=== PATIENT | female | born 1940 | race Caucasian/White ===

== ENCOUNTER → 2023-04-26 15:59 | Outpatient (REF) | payer MEDICARE, OTHER, SELFPAY | LOC: RAD 15:59 | PROVIDERS: ATTENDING PHYSICIAN Nurse Practitioner Family | DX: M79.671 Pain in right foot (principal) | CPT/HCPCS: 73610; 73630 ==

== ENCOUNTER 2023-04-26 17:16 | Emergency (ER) | payer MEDICARE, OTHER, SELFPAY ==
[2023-04-26 17:18] VITALS: BP 159/61
--- NOTE | 2023-04-26 18:09 | ED.MUSCINJ ---
HPI-Injury
General
Chief Complaint: Musculo-Skeletal Complaint
Source: patient
Exam Limitations: none
Time Seen by Provider: 04/26/23 18:00
Travel History
Have you had any contact with someone who has COVID-19?: No
Do you have any symptoms of coronavirus? Fever > 100 degrees, chills, cough, shortness of breath, sore throat, loss of taste or smell, muscle aches, or headache?: No
History of Present Illness-Injury
Initial Injury comments:
82-year-old female presents complaining of right ankle pain and swelling starting today. She was watching her daughter's dog and the daughter pulled her over and she twisted her ankle. No other complaints at this time. Her family doctor sent her
for outpatient x-rays and was sent here for further treatment. No other complaints at this time.
Past History
Past History
ED Past Medical History: Other (As per documentation)
ED Past Surgical History: Other (cranial ([facility] aneursym))
Social History
Tobacco: Non-smoker
Alcohol: None
Drug: None
Personal:
Living: with family
Family History
Family History: Other (Reviewed and non-contributory)
Phy Exam
Physical Exam
Physical Exam:
General: well appearing female NAd
HEENT: NC/AT
MSK: Right ankle swollen, echhymotic and tender anteriorly and laterally. No deformities. Good ROM, good sensation
Neuro: good sensation right foot.
Vascular: 2+ DP pulse right foot.
Injury Course
Orders/Labs/Results
Orders:
Orders
04/26/23 18:08
Ortho Boot Right- Treatment ONCE
Short or tall?: Short
MDM/Problems Addressed
Differential Diagnosis Includes:
right foot pain. sprain vs fracture vs dislocation
Xrays personally reviewed and show chip fractures of lateral mal and anterior talus.
Will place in orthopedic boot and follow up with orthpedics.
*Critical Care Note
Total Time (30-74mins, 75-104mins- exclusive of procedures): Not Applicable
ED Attending Note
-
Portions of this chart may have been created with voice recognition software.� Occasional wrong word or��sound alike� substitutions may have occurred due to the inherent limitations of voice recognition software.
Discharge Plan
Departure
Patient Disposition: Home (Routine Discharge)
Date of Disposition: 04/26/23
Time of Disposition: 18:12
Patient with high blood pressure during this ER visit?: No
Discharge Problem:
Avulsion fracture of ankle
Instructions: Ankle Fracture (DC)
Prescriptions:
No Action
simvastatin 10 MG tablet
10 mg PO QPM
triamterene-hydrochlorothiazid 1 EACH tablet
1 tab PO DAILY
meclizine 25 MG tablet
25 mg PO Q8HPRN PRN (Reason: prn for dizziness/vertigo) Qty: 20 0RF
glucosamine-chondroitin 1 EACH capsule
1 tab PO DAILY
calcium carbonate-vitamin D3 1 EACH tablet
600 mg PO DAILY
aspirin [Aspir-Low] 81 MG tablet,delayed release (DR/EC)
81 mg PO DAILY
Tylenol
650 mg PO PRN PRN (Reason: pain)
Referrals:
Iraj Bianchi MD [Family Provider] -
Octaviano Garcia MD [Active] -
Activity Restrictions/Additional Instructions:
Use boot when ambulating. Elevate for swelling. Use ibuprofen or Tylenol for pain. Return if worse otherwise follow-up orthopedics
Interventions
Interventions:
*General Assessment Last Done: 04/26/23 17:18
*ED COVID-19 Vaccine History Last Done: 04/26/23 17:18
== END 2023-04-26 18:54 | disposition home or self-care (01) ==
LOC: EMR 17:16
PROVIDERS: EMERGENCY PHYSICIAN Emergency Medicine; FAMILY PHYSICIAN Family Medicine
DX: S82.61XA Displaced fracture of lateral malleolus of right fibula, initial encounter for closed fracture (principal); S92.191A Other fracture of right talus, initial encounter for closed fracture; X50.1XXA Overexertion from prolonged static or awkward postures, initial encounter; Y93.89 Activity, other specified
CPT/HCPCS: 99283; 29515; 73610; 73630

== ENCOUNTER → 2023-09-27 15:33 | Outpatient (REF) | payer MEDICARE, OTHER, SELFPAY | LOC: WDC 15:33 | PROVIDERS: ATTENDING PHYSICIAN Nurse Practitioner Adult Health; FAMILY PHYSICIAN Family Medicine | DX: Z12.31 Encounter for screening mammogram for malignant neoplasm of breast (principal) | CPT/HCPCS: 77063; 77067 ==

== ENCOUNTER → 2023-10-04 09:03 | Outpatient (REF) | payer MEDICARE, OTHER, SELFPAY | LOC: RCS 09:03 | PROVIDERS: ATTENDING PHYSICIAN Internal Medicine Cardiovascular Disease; FAMILY PHYSICIAN Family Medicine | DX: I10 Essential (primary) hypertension (principal); R01.1 Cardiac murmur, unspecified | CPT/HCPCS: 93306 ==

== ENCOUNTER → 2023-11-04 12:58 | Outpatient (REF) | payer MEDICARE, OTHER, SELFPAY | LOC: PAVMRI 12:58 | PROVIDERS: ATTENDING PHYSICIAN Orthopaedic Surgery; FAMILY PHYSICIAN Family Medicine | DX: M17.0 Bilateral primary osteoarthritis of knee (principal) | CPT/HCPCS: 73721 ==

== ENCOUNTER 2024-08-05 12:25 | Inpatient (IN) | payer MEDICARE, OTHER, SELFPAY ==
[2024-08-05] VITALS (10 sets, daily range): BP systolic 137–170; BP diastolic 51–80; BMI 25.6; BMI 25.2
[2024-08-05] MEDS: TORADOL 15 MG IV (07:59)
[2024-08-05] MEDS: NSS 1000 IV (07:59)
[2024-08-05] MEDS: ZOFRAN 4 MG IV (08:00)
[2024-08-05 08:11] LABS: % Basophils 0.4 % (0-2); % Eosinophils 0.1 % (0-6); % Immature Granulocytes 0.5 % (0-0.5); % Lymphocytes 8.1 % (20.5-51.1); % Monocytes 5.2 % (1.7-9.3); % Neutrophils 85.7 % (42.2-75.2); Absolute Basophils 0.1 10^3/uL (0-0.2); Absolute Immature Granulocytes 0.1 10^3/uL (0-0.05); Absolute Monocytes 0.6 10^3/uL (0.1-0.6); Absolute Neutrophils 10.4 10^3/uL (1.4-6.5); Hematocrit 39.6 % (37.0-47.0); Hemoglobin 13.5 g/dL (12.0-16.0); Mean Corp Hgb Conc. 34.1 g/dL (33.0-37.0); Mean Corpuscular Hgb 31.1 pg (27.0-31.0); Mean Corpuscular Volume 91.2 fL (81.0-99.0); Mean Platelet Volume 10.2 fL (7.4-10.4); Nucleated Red Blood Cells % 0 %; Platelet Count 540 10^3/uL (130-400); Red Blood Cell Count 4.34 10^6/uL (4.20-5.40); Red Cell Dist. Width 11.8 % (11.5-14.5); White Blood Cell Count 12.2 10^3/uL (4.8-10.8)
--- NOTE | 2024-08-05 08:20 | ED.GENMED ---
History of Present Illness
General
Chief Complaint: Abdominal Pain
Time Seen by Provider: 08/05/24 07:28
History of Present Illness
History of Present Illness:
83-year-old female with history of hypertension hyperlipidemia presenting to the emergency department for generalized abdominal pain and vomiting. Patient reports symptoms for the past week. At onset, saw her primary care doctor, was started on
amoxicillin, without any interval improvement. Denies constipation or diarrhea. Does note vomiting, last episode was around 3 AM this morning. Reports overall decreased p.o. intake. Also reports fever, had a fever this morning. Did not take any
antipyretics prior to arrival. Denies chest pain or difficulty breathing. Does report history of appendectomy. Denies urinary complaints. Denies additional acute medical complaints
Past History
Past History
ED Past Medical History: Other (As per documentation)
ED Past Surgical History: Other (cranial ([facility] aneursym))
Social History
Tobacco: Non-smoker
Alcohol: None
Drug: None
Personal:
Living: with family
Family History
Family History: Other (Reviewed and non-contributory)
Phy Exam
Physical Exam
Physical Exam:
General: Well-appearing, no clinical signs of dehydration, nontoxic and in no acute distress
HEENT: protecting airway
Neck: appears supple
CV: Normal heart rate, regular rhythm, no evidence of cyanosis
Resp: No accessory muscle use, no increased work of breathing
Abd: Soft and non-distended, generalized nonfocal tenderness without rebound or guard
Extremities: No deformities, no swelling
Neuro: alert, no focal neurologic deficit
: deferred
Rectal: deferred
Psych: Normal affect
Skin: Intact
Course
Orders/Labs/Results
Orders:
Orders
08/05/24 07:46
0.9% Sodium Chloride 1000 ml [Nss] 1,000 ml IV BOLUS
Ketorolac [Toradol] 15 mg IV NOW STA
Ondansetron Injectable [Zofran] 4 mg IV NOW STA
08/05/24 07:47
CT Abd/pelvis W Iv Cont Urgent
Comment:
Reason For Exam: generalized pain and vomiting
08/05/24 08:01
Complete Blood Count/With Diff Urgent
Comprehensive Metabolic Panel Urgent
Lipase Urgent
08/05/24 08:03
Lactic Acid Urgent
08/05/24 09:08
Urinalysis Reflex To Culture Urgent
Date Specimen was Collected: 08/05/24
Time Specimen was Collected: 09:05
08/05/24 09:34
NG Tube [GI tube insertion- Treatment] ONCE
Abnormal Lab Results
08/05/24
08:01
WBC 12.2 H 10^3/uL
(4.8-10.8)
MCH 31.1 H pg
(27.0-31.0)
Plt Count 540 H 10^3/uL
(130-400)
Abs Immat Gran (auto) 0.1 H 10^3/uL
(0-0.05)
Absolute Neuts (auto) 10.4 H 10^3/uL
(1.4-6.5)
Absolute Lymphs (auto) 1.0 L 10^3/uL
(1.2-3.4)
Neutrophils % 85.7 H %
(42.2-75.2)
Lymphocytes % 8.1 L %
(20.5-51.1)
BUN 28 H mg/dl
(7-17)
Glucose 137 H mg/dl
(70-99)
Calcium 10.3 H mg/dl
(8.4-10.2)
08/05/24 08:01
08/05/24 08:01
Vital Signs
Initial and Last Documented VS:
Initial Vital Signs
Temp Pulse Resp BP Pulse Ox
97.8 F 76 18 139/80 92
08/05/24 07:23 08/05/24 07:23 08/05/24 07:23 08/05/24 07:23 08/05/24 07:23
Last Documented Vital Signs
Temp Pulse Resp BP Pulse Ox
97.8 F 62 15 157/51 98
08/05/24 07:23 08/05/24 08:18 08/05/24 08:18 08/05/24 09:10 08/05/24 09:15
MDM/Problems Addressed
MDM/Problems Addressed:
83-year-old female with history of hypertension hyperlipidemia presenting for generalized abdominal discomfort for the past week. Vital signs on arrival are normal.
On exam, patient is resting comfortably, no acute distress. Does report generalized pain to the abdomen, tender on palpation. Pain somewhat more prominent in the lower quadrants of the abdomen. Given duration of symptoms and reproducible pain,
will plan for CT imaging, laboratory analysis. Differential considerations include colitis versus diverticulitis versus cystitis versus pyelonephritis. Toradol, Zofran, IV fluids administered for symptoms
09:35 - Patient's labs unremarkable. Pain is controlled. CT is consistent with a small bowel obstruction, thought to be secondary to postsurgical changes in the right lower quadrant. Patient notes history of melanoma in the past, status post
lymph node resection in that area. Will try to place NG tube. Message sent to surgery. Plan for admission
*Critical Care Note
Total Time (30-74mins, 75-104mins- exclusive of procedures): Not Applicable
ED Attending Note
-
Portions of this chart may have been created with voice recognition software.� Occasional wrong word or��sound alike� substitutions may have occurred due to the inherent limitations of voice recognition software.
Discharge Plan
Departure
Prescriptions:
No Action
simvastatin 10 MG tablet
10 mg PO QPM
triamterene-hydrochlorothiazid 1 EACH tablet
1 tab PO DAILY
calcium carbonate-vitamin D3 1 EACH tablet
600 mg PO .3XAWEEK
Tylenol
650 mg PO PRN PRN (Reason: pain)
Referrals:
Iraj Bianchi MD [Family Provider] -
Interventions
Interventions:
*Risk Screen - Suicide Last Done: 08/05/24 07:23
*General Assessment Last Done: 08/05/24 07:23
*Neglect/Abuse Screening Last Done: 08/05/24 07:23
*ED- Fall Risk Assessment Last Done: 08/05/24 08:17
*ED COVID-19 Vaccine History Last Done: 08/05/24 08:17
DG-Xdgzcy-Ickanqpqjz Assessment Last Done: 08/05/24 08:17
Discharge Date and Time
Print Language: TAMAZIGHT
[2024-08-05 08:26] LABS: ALT (SGPT) 25 U/L (0-35); AST (SGOT) 23 U/L (14-36); Albumin 4.3 g/dl (3.5-5.0); Alkaline Phosphatase 100 U/L (38-126); Blood Urea Nitrogen 28 mg/dl (7-17); Calcium 10.3 mg/dl (8.4-10.2); Carbon Dioxide 28 mmol/L (22-30); Chloride 105 mmol/L (98-107); Estimated Creatinine Clearance 39 ml/min; Glucose 137 mg/dl (70-99); Lipase 87 U/L (23-300); Sodium 142 mmol/L (135-145); Total Bilirubin 0.5 mg/dl (0.2-1.3)
[2024-08-05 08:32] LABS: Lactic Acid 1.2 mmol/L (0.7-2.0)
[2024-08-05 10:04] LABS: Urine Albumin 2+ (Neg - Trace); Urine Bilirubin Negative (Negative); Urine Character Clear (Clear); Urine Color Yellow; Urine Glucose Negative (Negative); Urine Ketone Negative (Negative); Urine Leukocyte 1+ (Negative); Urine Nitrite Negative (Negative); Urine Occult Blood Negative (Negative); Urine Urobilinogen Negative (Neg - 1+)
[2024-08-05 10:35] LABS: Urine Bacteria Few (Negative); Urine Red Blood Cell 0-2 /HPF (0-2); Urine White Cell 0-2 /HPF (0-5)
--- NOTE | 2024-08-05 11:11 | HPS.HSE ---
Family Physician
-
Family Physician: Iraj Bianchi
Chief Complaint
-
Abdominal pain and vomiting
History of Present Illness
83 y/o F with PMHx:
HLD
Essential HTN
who p/w CC abdominal pain and vomiting. Patient has had diffuse abdominal pain for the past 2 weeks. Two days ago she began having episodes of vomiting. Of note she saw her primary care physician about a week ago as she was having fever. She was
diagnosed with a UTI and prescribed 10 days of antibiotics. She states she took 5 days of antibiotics and then stopped taking them. Denies any chest pain, shortness of breath, palpitations, headache, neck stiffness, syncope. Denies any other
acute symptoms.
Medical History
Past Medical History
Past Medical History: Reports HTN and Hypercholesterolemia
Past Surgical History: Reports Appendectomy
Social History
Tobacco: Non-smoker
Alcohol: None
Drug: None
Living: With Family
Family History
Family History: Not pertinent
Allergies / Home Medications
Allergies reflects when Allergies were last updated in [facility].
Home Medications with original date entered in [facility]
Allergy/Medication List:
Allergies
Allergy/AdvReac Type Severity Reaction Status Date / Time
No Known Allergies Allergy Verified 08/05/24 07:26
Home Medications
simvastatin 10 mg tablet 10 mg PO QPM 03/16/11
calcium 500 mg (as carbonate)-vitamin D3 10 mcg (400 unit) tablet (Calcium 500 + D) 1 tab PO MOWEFR 08/05/24
cyanocobalamin (vitamin B-12) 1,000 mcg tablet 1,000 mcg PO MOWEFR 08/05/24
magnesium oxide 400 mg PO SUTUTH 08/05/24
naproxen sodium 220 mg tablet (Aleve) 220 mg PO DAILY 08/05/24
triamterene 37.5 mg-hydrochlorothiazide 25 mg tablet 1 tab PO DAILY 08/05/24
Review of Systems
-
History Source: Patient
A 12 point ROS was completed and negative except as noted: Yes
Physical Exam
Vital Signs
Vital Signs
Temp Pulse Resp BP Pulse Ox
97.8 F 74 15 142/69 95
08/05/24 07:23 08/05/24 10:33 08/05/24 10:33 08/05/24 10:30 08/05/24 10:30
Physical Exam
General: Other (.)
Laboratory Results
-
08/05/24 08:01
08/05/24 08:01
Laboratory Results
Lactic Acid 1.2 mmol/L (0.7-2.0) 08/05/24 08:03
Total Bilirubin 0.5 mg/dl (0.2-1.3) 08/05/24 08:01
AST 23 U/L (14-36) 08/05/24 08:01
ALT 25 U/L (0-35) 08/05/24 08:01
Alkaline Phosphatase 100 U/L (38-126) 08/05/24 08:01
Lipase 87 U/L (23-300) 08/05/24 08:01
Impression/Plan
-
Gen: NAD, AAOx3.
Eyes: EOMI, PERRLA, no scleral icterus.
Neck: supple.
CV: RRR, +S1/S2, no m/r/g.
Resp: CTAB, no rales, wheezes, or rhonchi.
Abd: hypoactive BS, soft, NT, ND
Skin: No rashes.
Neuro: CN 2-12 intact, non-focal.
Psych: Normal mood and affect.
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 Prior appendectomy. Postsurgical changes noted in the right lower quadrant.
Colonic diverticulosis, most prominent distally. No large bowel obstruction. Residual presumed postsurgical changes with some partially calcified right groin lymph nodes. Findings suspicious small bowel enteritis as well as small bowel obstruction
in the right lower quadrant at the approximate level of the ileocecal junction which may be related to prior surgery/adhesions with postsurgical changes noted. Small volume residual soft tissue prominence in the right groin, partially calcified most
likely represents the remnant of residual malignant lymphadenopathy seen in this area on remote prior CT. The possibility that small bowel obstruction may be related to recurrent malignant lymphadenopathy cannot be entirely excluded.
CXR: Nasogastric tube with tip in proximal stomach, just distal to the gastroesophageal junction. Tube should be passed further into the body of the stomach.
SBO with SB enteritis:
-NGT placed in ER for UGI decompression
-NPO/IVFs/pain control/antiemetics
-surgery following, no indication for surgical intervention at this time
Other problems:
Essential HTN: Resume Dyazide once taking PO
HLD: resume statin once taking PO
DNR - confirmed with the pt in the ER
Lovenox
--- NOTE | 2024-08-05 11:33 | CON.GS ---
Consultation
-
Date/Time Consultation Requested: 08/05/2024 9 AM
Date/Time Consultation Performed: 08/05/2024 10 AM
Requesting Provider: Emergency department
Performing Provider: Dr. Stroud
Reason for Consultation: Small bowel obstruction
Medical History
-
Chief Complaint: Abdominal pain
History of Present Illness:
This is an 83-year-old female with a history of remote open appendectomy, right inguinal lymph node dissection for melanoma who presents with a 2-day history of nausea, vomiting and anorexia in the setting of a 1 week history of vague abdominal pain
and GI complaints. She states that she often has abdominal pain when bending over to 'tie her shoes' and that she has to 'lie down and massage her abdomen before things start feeling better again'. She states that she last vomited this morning and
that it was nonbloody and nonbilious. She states that her last bowel movement was yesterday. She is unsure if she is passing flatus. The patient denies Fever, Chest Pain, Shortness Of Breath, changes in urinary habits, unintentional weight loss.
She has never had a prior bowel obstruction.
Last colonoscopy: 2021, diverticulosis noted
Past Medical History
Past Medical History: Reviewed & Noncontributory
Past Surgical History: Appendectomy
Social History
Tobacco: Non-Smoker
Family History
Family History: Reviewed & Not Pertinent
Allergies / Home Medications
Allergy/AdvReac Type Severity Reaction Status Date / Time
No Known Allergies Allergy Verified 08/05/24 07:26
�Medication �Instructions �Recorded �Confirmed �Type
simvastatin 10 mg tablet 10 mg PO QPM 03/16/11 08/05/24 History
calcium 500 mg (as 1 tab PO MOWEFR 08/05/24 08/05/24 History
carbonate)-vitamin D3 10 mcg (400
unit) tablet (Calcium 500 + D)
cyanocobalamin (vitamin B-12) 1,000 mcg PO MOWEFR 08/05/24 08/05/24 History
1,000 mcg tablet
magnesium oxide 400 mg PO SUTUTH 08/05/24 08/05/24 History
naproxen sodium 220 mg tablet 220 mg PO DAILY 08/05/24 08/05/24 History
(Aleve)
triamterene 37.5 1 tab PO DAILY 08/05/24 08/05/24 History
mg-hydrochlorothiazide 25 mg tablet
Review of Systems
-
History Source: Patient
All other systems: Negative unless noted
A 10 point review of systems was completed, and was negative except as per HPI.
Physical Exam
Vital Signs
Temp Pulse Resp BP Pulse Ox
97.8 F 72 16 153/56 97
08/05/24 07:23 08/05/24 11:27 08/05/24 11:27 08/05/24 11:27 08/05/24 11:27
08/04/24 08/05/24 08/06/24
06:59 06:59 06:59
Actual Weight 70.9 kg
Body Mass Index (BMI) 25.6
Lab Results
08/05/24 08:01
08/05/24 08:01
WBC 12.2 10^3/uL (4.8-10.8) H 08/05/24 08:01
Hgb 13.5 g/dL (12.0-16.0) 08/05/24 08:01
Hct 39.6 % (37.0-47.0) 08/05/24 08:01
Plt Count 540 10^3/uL (130-400) H 08/05/24 08:01
Abs Immat Gran (auto) 0.1 10^3/uL (0-0.05) H 08/05/24 08:01
Neutrophils % 85.7 % (42.2-75.2) H 08/05/24 08:01
Physical Exam
General: Well Developed
HEENT: Normocephalic
Respiratory: Non Labored Respirations
GI: Soft, Non Tender and Distended (Minimally)
Data Reviewed
-
CT Scan: Image Personally Visualized and interpreted, Report Reviewed by me, Discussed with Physician and Discussed with Patient
Labs: Labs Reviewed by me, Discussed with Physician and Discussed with Patient
Total Time Spent with Patient (in minutes): 30
Assessment / Plan
-
This is an 83-year-old female with a history of a remote open appendectomy who presents with a 2-day history of abdominal pain in the setting of 1 week of intermittent abdominal pain found to have a small bowel obstruction on CT with a transition
point in the right lower quadrant. NG tube placed with clear output.
CT and plain film reviewed. Please advance NG tube 5 cm and resecure if not done so already. Can confirm with a repeat x-ray.
Will continue to manage this obstruction nonoperatively for now. N.p.o., IV fluids, continue NG tube to low intermittent wall suction.
Will plan for a small bowel follow-through tomorrow unless patient has clinically improved.
All questions answered, patient agreeable to plan of care above.
--- NOTE | 2024-08-05 16:12 | DOWNTIME ---
There was a [employer] Downtime on 08/05/2024 from 1230 to 08/05/2024 at 1550. Downtime documentation of patient's care, including medication administrations, has been reconciled in the electronic record per guidelines. Refer to the
patient's paper chart under the miscellaneous tab to see printed paper medication records and downtime forms.
[2024-08-05] MEDS: D5/0.45%NACL 1000 IV (18:07)
[2024-08-05] MEDS: LOVENOX 40 MG SC (18:08)
[2024-08-06] MEDS: D5/0.45%NACL 1000 IV ×2 (05:18→13:22)
[2024-08-06 06:46] LABS: Hematocrit 35.7 % (37.0-47.0); Hemoglobin 11.9 g/dL (12.0-16.0); Mean Corp Hgb Conc. 33.3 g/dL (33.0-37.0); Mean Corpuscular Hgb 31.6 pg (27.0-31.0); Mean Corpuscular Volume 94.9 fL (81.0-99.0); Mean Platelet Volume 9.8 fL (7.4-10.4); Platelet Count 448 10^3/uL (130-400); Red Blood Cell Count 3.76 10^6/uL (4.20-5.40); Red Cell Dist. Width 11.9 % (11.5-14.5); White Blood Cell Count 11.8 10^3/uL (4.8-10.8)
[2024-08-06 07:05] LABS: Blood Urea Nitrogen 26 mg/dl (7-17); Carbon Dioxide 30 mmol/L (22-30); Chloride 108 mmol/L (98-107); Estimated Creatinine Clearance 43 ml/min; Glucose 121 mg/dl (70-99); Potassium 3.8 mmol/L (3.5-5.1); Sodium 142 mmol/L (135-145); eGFR > 60.00
[2024-08-06 07:32] VITALS: BP 131/53
--- NOTE | 2024-08-06 08:02 | W.PN.HOSP.TC ---
Today's Communication/Plan
-
see plan
Assessment / Plan
Assessment / Plan
Gen: NAD, AAOx3.
Eyes: EOMI, PERRLA, no scleral icterus.
Neck: supple.
CV: remains RRR, +S1/S2, no m/r/g.
Resp: CTAB anteriorly, no rales, wheezes, or rhonchi.
Abd: +BS, soft, NT, ND
Skin: No rashes.
Neuro: CN 2-12 intact, non-focal.
Psych: Normal mood and affect.
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 Prior appendectomy. Postsurgical changes noted in the right lower quadrant.
Colonic diverticulosis, most prominent distally. No large bowel obstruction. Residual presumed postsurgical changes with some partially calcified right groin lymph nodes. Findings suspicious small bowel enteritis as well as small bowel obstruction
in the right lower quadrant at the approximate level of the ileocecal junction which may be related to prior surgery/adhesions with postsurgical changes noted. Small volume residual soft tissue prominence in the right groin, partially calcified most
likely represents the remnant of residual malignant lymphadenopathy seen in this area on remote prior CT. The possibility that small bowel obstruction may be related to recurrent malignant lymphadenopathy cannot be entirely excluded.
CXR: Nasogastric tube with tip in proximal stomach, just distal to the gastroesophageal junction. Tube should be passed further into the body of the stomach.
SBO with SB enteritis:
-NGT placed in ER for UGI decompression, removed 08/06/24AM
-initiate clears, cont IVFs until pt tolerates clears
-surgery following, no indication for surgical intervention at this time
Other problems:
Essential HTN: Resume Dyazide once taking PO
HLD: resume statin once taking PO
DNR - confirmed with the pt in the ER
Lovenox
Anticipated Discharge: Within 24 hours
Subjective/Interval History
-
Date of Service: August 06, 2024
Since yesterday patient has had a large bowel movement. She denies abdominal pain. No further vomiting.
Objective Data
-
Labs:
Laboratory Results
08/06/24
06:29
WBC 11.8 H
Hgb 11.9 L
Hct 35.7 L
Plt Count 448 H
Sodium 142
Potassium 3.8
Chloride 108 H
Carbon Dioxide 30
BUN 26 H
Creatinine 0.9
Glucose 121 H
Calcium 9.0
Vital Signs:
Vital Signs
Temp Pulse Resp BP Pulse Ox
97.9 F 53 16 131/53 97
08/06/24 07:32 08/06/24 07:32 08/06/24 07:32 08/06/24 07:32 08/06/24 07:32
I&O
08/05/24 08/06/24 08/07/24
06:59 06:59 06:59
Intake Total 1200 / 1200
Output Total 100 / 100
Balance 1100 / 1100
--- NOTE | 2024-08-06 08:42 | W.PN.GS2 ---
Addendum entered and electronically signed by Shaheen Brown MD 08/06/24 16:30:
partial small bowel obstruction
Original Note:
Today's Communication / Plan
-
`
Assessment / Plan
-
Assessment: 83-year-old female admitted with small bowel obstruction likely adhesive related in the setting of her prior history of open appendectomy and right inguinal lymph node dissection
AFVSS
Clinically resolving with return of GI function
Minimal NG tube outputs, nonbilious
Plan: NG tube removed at bedside this a.m.
Initiate clear liquid diet and okay to cautiously advance as tolerated to low residue.
Okay to discharge from a surgical standpoint if dietary advancement tolerated
Dietary counseling provided to patient regarding maintaining low residue diet for a week or 2 before cautious resumption of regular dietary intake. Advised regarding potential risk for recurrent small bowel obstructions and symptoms to monitor for.
Advised regarding future avoidance of large quantities of high fibrous foods in a single setting.
Subjective Data
-
Date of Service: August 06, 2024
Patient seen and examined. Reports presenting symptoms have completely resolved.
Denies abdominal pain
Denies nausea
No abdominal bloating or distention/tightness
Passing flatus and had a large bowel movement yesterday evening
Objective Data
-
Intake and Output
08/05/24 08/06/24 08/07/24
06:59 06:59 06:59
Intake Total 1200 / 1200
Output Total 100 / 100
Balance 1100 / 1100
Intake:
IV fluids (Total) 1200 / 1200
Output:
Gastrointestinal tube output ( 100 / 100
Total)
[place] Sump 100 / 100
Other:
Number of approximated MODERATE 2
amounts of urine
Vital Signs
Temp Pulse Resp BP Pulse Ox
97.9 F 53 16 131/53 97
08/06/24 07:32 08/06/24 07:32 08/06/24 07:32 08/06/24 07:32 08/06/24 07:32
Lab Results
08/06/24 06:
08/06/24 06:29
Calcium 9.0 mg/dl (8.4-10.2) 08/06/24 06:
Total Bilirubin 0.5 mg/dl (0.2-1.3) 08/05/24 08:01
AST 23 U/L (14-36) 08/05/24 08:
ALT 25 U/L (0-35) 08/05/24 08:01
Alkaline Phosphatase 100 U/L (38-126) 08/05/24 08:01
Total Protein 7.0 g/dl (6.3-8.2) 08/05/24 08:01
Albumin 4.3 g/dl (3.5-5.0) 08/05/24 08:01
Physical Exam
-
NAD AAO x 3
ABD: Soft, nondistended, no tenderness on palpation. No rebound rigidity no guarding.
NG tube in place clearish gastric contents in tubing, nonbilious
--- NOTE | 2024-08-06 14:39 | PN.CDI ---
CDI
- -
CDI:
Physician Documentation Request
Admit Date: 08/05/24 12:25
Dear Doctor Kevin,
Patient admitted with small bowel obstruction.
08/06 Gen Surg note, 'Clinically resolving with return of GI function....Minimal NG tube outputs, nonbilious...Plan: NG tube removed at bedside this a.m...'
Please provide in your note the likely extent of the small bowel obstruction:
Partial small bowel obstruction
Complete small bowel obstruction
Other
Use of terms such as suspected, likely, concern for, or probable (associated with a specific diagnosis that is being evaluated, monitored, or treated as if it exists) are acceptable and can be coded in the inpatient setting, when documented at the
time of discharge.
Thank you,
Lindy MOYAN,RN,CCDS
CDI Specialist
Available via [facility] text
Please use your independent medical judgment in providing your response.
[2024-08-06 14:48] VITALS: BP 129/68
--- NOTE | 2024-08-06 17:16 | CM ---
Patient with Dx SBO with SB enteritis. Room air. NGT out. Clear liquids. Per nurse; ambulatory by self in room.
Spoke with patient's daughter Evelin;
the patient resides with her SO Errol in a 1 story house with 1 +1 + 1 outside steps, and stairs to laundry in basement.
The patient was independent in ADLs and ambulation.
The patient has no DME, prior VN or SNF.
She had prior [facility].
PCP - Iraj Bianchi
Pharmacy - [facility]
Evelin lives 5 houses away from patient. She has 4 supportive daughters.
No CM d/c needs identified.
Plan home.
[2024-08-06] MEDS: LOVENOX 40 MG SC (17:40)
[2024-08-06 23:09] VITALS: BP 158/64
[2024-08-07] MEDS: D5/0.45%NACL 1000 IV (03:01)
--- NOTE | 2024-08-07 05:43 | PTCARENOTE ---
Pt IV found to be leaking all over bed. Fluids placed on standby, VAT notified at 1951. New IV placed, but then found to be occluded shortly after. Pt refused another new IV placement. D5/0.45NaCl ordered at 100ml/hr. Pt informed of importance of
hydration, however continued to decline new IV placement until morning.
[2024-08-07 06:25] LABS: Hematocrit 32.3 % (37.0-47.0); Hemoglobin 10.8 g/dL (12.0-16.0); Mean Corp Hgb Conc. 33.4 g/dL (33.0-37.0); Mean Corpuscular Hgb 31.5 pg (27.0-31.0); Mean Corpuscular Volume 94.2 fL (81.0-99.0); Mean Platelet Volume 9.8 fL (7.4-10.4); Platelet Count 412 10^3/uL (130-400); Red Blood Cell Count 3.43 10^6/uL (4.20-5.40); Red Cell Dist. Width 11.8 % (11.5-14.5); White Blood Cell Count 10.7 10^3/uL (4.8-10.8)
[2024-08-07 06:49] LABS: Blood Urea Nitrogen 14 mg/dl (7-17); Calcium 8.6 mg/dl (8.4-10.2); Carbon Dioxide 25 mmol/L (22-30); Chloride 109 mmol/L (98-107); Estimated Creatinine Clearance 48 ml/min; Glucose 93 mg/dl (70-99); Potassium 3.7 mmol/L (3.5-5.1); Sodium 139 mmol/L (135-145); eGFR > 60.00
[2024-08-07 07:23] VITALS: BP 98/70
--- NOTE | 2024-08-07 08:35 | W.PN.GS2 ---
Addendum entered and electronically signed by Shaheen Brown MD 08/07/24 10:08:
Patient seen and examined in follow-up with surgical DEPARTMENT MANAGER. Agree with documented progress note
Offers no complaints. No abdominal pain. No nausea or vomiting. Presenting symptoms resolved.
Multiple loose bowel movements.
AFVSS
ABD: Soft, nondistended, nontender on palpation.
A/P: Resolving partial small bowel obstruction likely secondary to adhesions given prior surgical history
Low residue diet
Okay for discharge from surgical standpoint.
Original Note:
Today's Communication / Plan
-
Advance diet
Assessment / Plan
-
Assessment: 83-year-old female admitted with small bowel obstruction likely adhesive related in the setting of her prior history of open appendectomy and right inguinal lymph node dissection
AFVSS
Clinically resolving with return of GI function
Tolerating clears
Plan:
Advance to low residue diet
Okay to discharge from a surgical standpoint if dietary advancement tolerated
Dietary counseling provided to patient regarding maintaining low residue diet for a week or 2 before cautious resumption of regular dietary intake. Advised regarding potential risk for recurrent small bowel obstructions and symptoms to monitor for.
Advised regarding future avoidance of large quantities of high fibrous foods in a single setting.
Subjective Data
-
Date of Service: August 07, 2024
Patient seen and examined at bedside. Passed multiple loose stools with flatus overnight. Denies n/v. Denies pain. Not much appetite yet.
Objective Data
-
Intake and Output
08/06/24 08/07/24 08/08/24
06:59 06:59 06:59
Intake Total 1200 / 1200 2160 / 2160
Output Total 100 / 100
Balance 1100 / 1100 2160 / 2160
Intake:
Oral fluids 960 / 960
IV fluids (Total) 1200 / 1200 1200 / 1200
Output:
Gastrointestinal tube output ( 100 / 100
Total)
[place] Sump 100 / 100
Other:
Number of approximated MODERATE 2 2
amounts of urine
Number of approximated LARGE 5
amounts of urine
Number of unmeasured liquid
stools
Rectum 3
Vital Signs
Temp Pulse Resp BP Pulse Ox
98.3 F 67 18 98/70 97
08/07/24 07:23 08/07/24 07:23 08/07/24 07:23 08/07/24 07:23 08/07/24 07:23
Lab Results
08/07/24 06:03
08/07/24 06:03
Calcium 8.6 mg/dl (8.4-10.2) 08/07/24 06:03
Total Bilirubin 0.5 mg/dl (0.2-1.3) 08/05/24 08:01
AST 23 U/L (14-36) 08/05/24 08:01
ALT 25 U/L (0-35) 08/05/24 08:01
Alkaline Phosphatase 100 U/L (38-126) 08/05/24 08:01
Total Protein 7.0 g/dl (6.3-8.2) 08/05/24 08:01
Albumin 4.3 g/dl (3.5-5.0) 08/05/24 08:01
Physical Exam
-
NAD AAO x 3
ABD: Soft, nondistended, no tenderness on palpation. No rebound rigidity no guarding.
--- NOTE | 2024-08-07 09:08 | W.PN.HOSP.TC ---
Addendum entered and electronically signed by Rufino Huerta MD 08/07/24 14:20:
Total time spent on d/c = 31 min. This included today's physical exam, progress note, review of laboratory and diagnostic data, preparation of discharge documents and prescriptions, and discussions about the pt's hospital course and discharge plan
with the patient and other director medical involved in the patient's care.
Original Note:
Today's Communication/Plan
-
d/c later today if tolerates LR diet
Assessment / Plan
Assessment / Plan
Gen: NAD, AAOx3.
Eyes: EOMI, PERRLA, no scleral icterus.
Neck: supple.
CV: continues to remain RRR, +S1/S2, no m/r/g.
Resp: remains CTAB anteriorly, no rales, wheezes, or rhonchi.
Abd: remains +BS, soft, NT, ND
Skin: No rashes.
Neuro: CN 2-12 intact, non-focal.
Psych: Normal mood and affect.
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 Prior appendectomy. Postsurgical changes noted in the right lower quadrant.
Colonic diverticulosis, most prominent distally. No large bowel obstruction. Residual presumed postsurgical changes with some partially calcified right groin lymph nodes. Findings suspicious small bowel enteritis as well as small bowel obstruction
in the right lower quadrant at the approximate level of the ileocecal junction which may be related to prior surgery/adhesions with postsurgical changes noted. Small volume residual soft tissue prominence in the right groin, partially calcified most
likely represents the remnant of residual malignant lymphadenopathy seen in this area on remote prior CT. The possibility that small bowel obstruction may be related to recurrent malignant lymphadenopathy cannot be entirely excluded.
CXR: Nasogastric tube with tip in proximal stomach, just distal to the gastroesophageal junction. Tube should be passed further into the body of the stomach.
SBO with SB enteritis:
-NGT placed in ER for UGI decompression, removed 08/06/24AM
-surgery following, no indication for surgical intervention at this time
-diet advanced to LR
Other problems:
Essential HTN: Resume Dyazide once BP improves
HLD: resume statin
DNR - confirmed with the pt in the ER
Lovenox
Anticipated Discharge: Today
Subjective/Interval History
-
Date of Service: August 07, 2024
Denies abd pain or vomiting.
Objective Data
-
Labs:
Laboratory Results
08/07/24
06:03
WBC 10.7
Hgb 10.8 L
Hct 32.3 L
Plt Count 412 H
Sodium 139
Potassium 3.7
Chloride 109 H
Carbon Dioxide 25
BUN 14
Creatinine 0.8
Glucose 93
Calcium 8.6
Vital Signs:
Vital Signs
Temp Pulse Resp BP Pulse Ox
98.3 F 67 18 98/70 97
08/07/24 07:23 08/07/24 07:23 08/07/24 07:23 08/07/24 07:23 08/07/24 07:23
I&O
08/06/24 08/07/24 08/08/24
06:59 06:59 06:59
Intake Total 1200 / 1200 2159 / 2160
Output Total 100 / 100
Balance 1100 / 1100 2159 / 2160
--- NOTE | 2024-08-07 10:53 | CM ---
Patient seen at bedside
IMM explained & signed. In chart
no needs
PLAN: Home when stable, no needs
SO to transport
[2024-08-07 13:49] VITALS: BP 149/63
--- NOTE | 2024-08-07 14:16 | W.DCSUMMARY ---
Discharge Summary
Discharge Data
Date of Admission: 08/05/24
Date of Discharge: 08/07/24
-
Pending Results: No
Hospital Course
Primary diagnoses:
Partial small bowel obstruction
Secondary diagnoses:
Essential hypertension
Hyperlipidemia
Consultants:
General Surgery
Imaging:
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 Prior appendectomy. Postsurgical changes noted in the right lower quadrant.
Colonic diverticulosis, most prominent distally. No large bowel obstruction. Residual presumed postsurgical changes with some partially calcified right groin lymph nodes. Findings suspicious small bowel enteritis as well as small bowel obstruction
in the right lower quadrant at the approximate level of the ileocecal junction which may be related to prior surgery/adhesions with postsurgical changes noted. Small volume residual soft tissue prominence in the right groin, partially calcified most
likely represents the remnant of residual malignant lymphadenopathy seen in this area on remote prior CT. The possibility that small bowel obstruction may be related to recurrent malignant lymphadenopathy cannot be entirely excluded.
CXR: Nasogastric tube with tip in proximal stomach, just distal to the gastroesophageal junction. Tube should be passed further into the body of the stomach.
Hospital course: 83-year-old female who presented with chief complaints of abdominal pain and vomiting examined in H&P done on admission. Imaging above. Patient was diagnosed with a partial small bowel obstruction. She was seen by surgery. A
nasogastric tube was placed to decompress the upper GI tract. The patient was supported with IV fluids. The following morning the NG tube was removed. Patient's diet was slowly and progressively advanced and she was tolerating a low residue diet
at the time of discharge. She was discharged in medically stable condition.
Discharge Plan
-
Patient Disposition: Home (Routine Discharge)
Discharge Diagnosis/Procedures: Partial small bowel obstruction
Condition: Good
Diet: Low Fiber and Low Residue
Activity: No restrictions
Driving Restrictions: As prior to admission
Instructions: Low-fiber diet
Referrals:
Iraj Bianchi MD [Family Provider, [facility]] - in less than 1 week
Prescriptions:
Continued
simvastatin 10 MG tablet
10 mg PO QPM
triamterene-hydrochlorothiazid 37.5-25 mg Tablet
1 tab PO DAILY
cyanocobalamin (vitamin B-12) 1,000 mcg Tablet
1,000 mcg PO MOWEFR
calcium carbonate-vitamin D3 [Calcium 500 + D] 500 mg-10 mcg (400 unit) Tablet
1 tab PO MOWEFR
magnesium oxide 400 mg magnesium Tablet
400 mg PO SUTUTH
Discontinued
naproxen sodium [Aleve] 220 mg Tablet
220 mg PO DAILY
Discharge Orders:
Discharge Patient (As Directed); Ordered 08/07/24
Ordered By: Rufino Huetra
Discharge Date and Time
Discharge Date/Time: 08/07/24 14:03
Print Language: TAJIK
== END 2024-08-07 14:03 | disposition home or self-care (01) | DRG 390 ==
LOC: 3 WEST ACU 12:25
PROVIDERS: ADMITTING PHYSICIAN Internal Medicine; CONSULT PHYSICIAN Surgery; EMERGENCY PHYSICIAN Student in an Organized Health Care Education/Training Program; FAMILY PHYSICIAN Family Medicine
DX: K56.51 Intestinal adhesions [bands], with partial obstruction (principal); I10 Essential (primary) hypertension; E78.00 Pure hypercholesterolemia, unspecified; K80.20 Calculus of gallbladder without cholecystitis without obstruction; N28.1 Cyst of kidney, acquired; I72.8 Aneurysm of other specified arteries; K57.30 Diverticulosis of large intestine without perforation or abscess without bleeding; Z90.49 Acquired absence of other specified parts of digestive tract
CPT/HCPCS: 71045; 74018; 74177; 80048; 80053; 81003; 81015; 83605; 83690; 85025; 85027; 87086; 96361; 96374; 96375; 99285; Q9967

== ENCOUNTER 2024-09-15 23:57 | Emergency (ER) | payer MEDICARE, OTHER, SELFPAY ==
[2024-09-15 23:59] VITALS: BP 174/80
[2024-09-16] VITALS (7 sets, daily range): BP systolic 151–192; BP diastolic 62–70; BMI 25.7
[2024-09-16 01:46] LABS: Hematocrit 36.1 % (37.0-47.0); Hemoglobin 12.3 g/dL (12.0-16.0); Mean Corp Hgb Conc. 34.1 g/dL (33.0-37.0); Mean Corpuscular Volume 91.6 fL (81.0-99.0); Nucleated Red Blood Cells % 0.4 %; Platelet Count 335 10^3/uL (130-400); Red Cell Dist. Width 13.1 % (11.5-14.5)
[2024-09-16 02:09] LABS: ALT (SGPT) 23 U/L (0-35); AST (SGOT) 29 U/L (14-36); Albumin 4.3 g/dl (3.5-5.0); Alkaline Phosphatase 85 U/L (38-126); Blood Urea Nitrogen 36 mg/dl (7-17); Calcium 9.9 mg/dl (8.4-10.2); Carbon Dioxide 25 mmol/L (22-30); Chloride 108 mmol/L (98-107); Estimated Creatinine Clearance 35 ml/min; Glucose 114 mg/dl (70-99); Potassium 4.2 mmol/L (3.5-5.1); Sodium 140 mmol/L (135-145); Total Protein 6.6 g/dl (6.3-8.2); eGFR 49.86
[2024-09-16 02:12] LABS: Troponin I 0.018 ng/ml
--- NOTE | 2024-09-16 05:20 | ED.GENMED ---
History of Present Illness
General
Chief Complaint: Dizziness
Source: patient
Time Seen by Provider: 09/16/24 04:12
Nursing documentation reviewed up to this point in time: agreed with
History of Present Illness
History of Present Illness:
Note:
CHIEF COMPLAINT(S)
- Dizziness and inability to stand or walk.
HISTORY OF PRESENT ILLNESS
The patient is an 83-year-old female who presented with the chief complaint of severe dizziness that began at approximately 8:00 PM today. She reports the dizziness as 'horrible' and notes that it prevented her from standing or walking. The patient
has a previous history of vertigo, experienced a few years ago, but describes this episode as notably different and more severe. She denies any relief or worsening of symptoms based on head positioning. She experienced nausea and vomiting but denies
headaches and currently has no blurry or double vision, although she had blurry vision earlier, which has since resolved. The patient recalled a significant past medical history of a brain aneurysm in 2011, which required emergency surgery following
a sudden onset of a severe headache. She questions a possible relation of current symptoms to a recent tick bite; however, she notes the tick was removed on Saturday. Lyme disease has been a recurring diagnosis in past years.
SOCIAL DETERMINANTS AFFECTING HEALTH
The patient mentions having had episodes of Lyme disease in past years, treated with antibiotics. She also jokes about treating with alcohol, indicating alcohol use.
PHYSICAL EXAM
- Nursing notes reviewed and vital signs reviewed.
- General: The patient was alert and oriented.
- Neurological: No acute focal neurological deficits noted.
PLAN
- Initiation of intravenous access and laboratory work.
- Conduct two computed tomography scans of the head, examining both the brain itself and the vascular structures, given the patients history of a brain aneurysm.
DIFFERENTIAL DIAGNOSIS
The Differential Diagnosis includes, in no particular order and is not limited to:
1. Benign Paroxysmal Positional Vertigo
2. Vestibular Neuritis
3. Labyrinthitis
4. Meniere�s Disease
5. Cerebral Vascular Accident (Stroke)
6. Transient Ischemic Attack
7. Brain Tumor
8. Migraine-associated Vertigo
9. Inner Ear Infection
10. Lyme Disease-associated Neurological Symptoms
CARE-UPDATE
09/16/24 - 05:54
Patient continues to experience dizziness, but no significant worsening of symptoms is noted. Patient has been encouraged to maintain hydration and is receiving IV fluids. If dizziness persists, medication will be considered as the next step. Recent
CT scan results were unremarkable. An MRI may be warranted for further assessment. Testing for Lyme disease has been initiated, but results are pending.
Disposition:
SUMMARY OF ENCOUNTER
The patient, an 83-year-old female, presented to the emergency department with dizziness. She has a prior history of a brain aneurysm. After receiving intravenous fluids, the patients dizziness resolved. A computed tomography angiography (CTA) and a
computed tomography (CT) scan were performed, both of which returned normal results. The patients orthostatic blood pressure measurements were within normal limits.
DISPOSITION
Discharge.
PLAN
The patient was advised on discharge with return precautions discussed at length, involving both the patient and a family member.
INDEPENDENT REVIEW OF LABS AND INTERPRETATION OF TESTS
- My independent interpretation of the computed tomography angiography and computed tomography scan is that both are normal.
PATIENT EDUCATION AND COUNSELING
Return precautions were discussed with the patient and a family member, ensuring they understood the signs and symptoms that would require a return to the emergency department.
MEDICAL DECISION MAKING
- Number and Complexity of Problems Addressed: Chronic conditions affecting care include a history of a brain aneurysm. Differential diagnosis includes benign paroxysmal positional vertigo, vestibular neuritis, labyrinthitis, Menieres disease,
cerebral vascular accident (stroke), transient ischemic attack, brain tumor, migraine-associated vertigo, inner ear infection, and Lyme disease-associated neurological symptoms.
- Data:
Category 1: My independent interpretation of computed tomography angiography and computed tomography scans showed normal findings.
- Risk: Consideration of Admission/Observation: Escalation of care including admission/observation was considered given the complexity and risk of the patients presenting complaint, exam findings, and underlying comorbidities. However, ultimately, I
feel the patient is safe for outpatient management with close follow-up. Reasoning: Work-up is reassuring, does not reveal any acute life/organ-threatening processes, the patients symptoms are well controlled upon reevaluation, reexamination is
reassuring, vitals are stable, patient is agreeable with discharge, and is reliable for follow-up.
DIAGNOSIS
Dizziness, R42.
Past History
Past History
ED Past Medical History: Other (As per documentation)
ED Past Surgical History: Other (cranial ([facility] aneursym))
Social History
Tobacco: Non-smoker
Alcohol: None
Drug: None
Personal:
Living: with family
Family History
Family History: Other (Reviewed and non-contributory)
Review of Systems
Review of Systems
Allergies reviewed?: Yes
All Other Systems: ROS reviewed and negative except as documented in HPI and ROS
Neurological: Reports dizzy
Psychiatric: Reports anxiety
Phy Exam
General Physical Exam
General Presentation: well appearing and no apparent distress
General Skin: warm and dry
General Habitus: normal
General Mental: alert
General Hydration: appears well hydrated
ENT Exam
ENT Exam: EOMI, pharynx normal, neck supple and normocephalic
Eye Exam
Eye Exam: PERRL, cornea clear and conjunctiva normal
Cardiovascular Exam
Cardiovascular Exam: regular rate/rhythm, no edema, no murmur and normal peripheral pulses
Pulmonary Exam
Pulmonary Exam: lungs clear, no respiratory distress, no rales, no crackles, no rhonchi, no stridor, no wheezing and no cough
Gastrointestinal Exam
Gastrointestinal Exam: normal bowel sounds, non tender, soft, no organomegaly, no pulsatile mass and non distended
Neurological Exam
Neurological Exam: alert, oriented x3, no motor deficits and speech normal
Musculoskeletal Exam
Musculoskeletal Exam: full ROM and no edema
Skin Exam
Skin Exam: normal color, warm/dry, no rash and no petechia
Psychiatric Exam
Psychiatric Exam: normal mood/affect
Course
Orders/Labs/Results
Orders:
Orders
09/16/24 00:02
ECG [Electrocardiogram (*1)] Urgent
Reason for Study: Vertigo / Dizzy
EKG- Treatment ONCE
09/16/24 01:33
Complete Blood Count/With Diff Urgent
Comprehensive Metabolic Panel Urgent
Troponin I Urgent
09/16/24 04:12
CT Head & Neck Angio W/wo IV Urgent
Comment:
Reason For Exam: dizziness
09/16/24 05:21
0.9% Sodium Chloride 1000 ml [Nss] 1,000 ml IV BOLUS
Abnormal Lab Results
09/16/24
01:33
RBC 3.94 L 10^6/uL
(4.20-5.40)
Hct 36.1 L %
(37.0-47.0)
MCH 31.2 H pg
(27.0-31.0)
Lymphocytes % 14.5 L %
(20.5-51.1)
Chloride 108 H mmol/L
(98-107)
BUN 36 H mg/dl
(7-17)
Creatinine 1.1 H mg/dL
(0.6-1.0)
Glucose 114 H mg/dl
(70-99)
09/16/24 01:33
09/16/24 01:33
Vital Signs
Initial and Last Documented VS:
Initial Vital Signs
Temp Pulse Resp BP Pulse Ox
97.2 F 68 22 174/80 98
09/15/24 23:59 09/15/24 23:59 09/15/24 23:59 09/15/24 23:59 09/15/24 23:59
Last Documented Vital Signs
Temp Pulse Resp BP Pulse Ox
97.2 F 62 18 169/64 96
09/15/24 23:59 09/16/24 06:58 09/16/24 06:57 09/16/24 06:58 09/16/24 05:21
*Pulse Oximetry
SaO2: 96
Oxygen Mode of Delivery: Room air
Patient hypoxic: no
*Critical Care Note
Total Time (30-74mins, 75-104mins- exclusive of procedures): Not Applicable
Update Note
Update Note:
NAME: ZANDRA TERESA
DATE OF EXAM: 09/16/2024
Patient No: [id number]
Physician: ZEYAD
Date of : 1940
Past Medical History (entered by Technologist):
Reason For Exam (entered by Technologist): dizziness , nausea
Other Notes (entered by Technologist): prior ct head sent to [facility]
Additional Information (per [facility] Radiologist):
CT head without IV contrast
CTA head and neck with IV contrast
IMPRESSION:
CT HEAD: No hemorrhage, hydrocephalus, or herniation. Sequelae of chronic microvascular disease. Consider MRI if clinically indicated.
CTA HEAD AND NECK: No large vessel occlusion. Atherosclerotic attic narrowing at the origin of the vertebral arteries from the subclavian arteries. Mild proximal ICA atherosclerotic disease. Consider CT perfusion if clinically indicated.
Finalized at 5 AM EST
Chucky Harvey M.D.
ED Attending Note
-
Portions of this chart may have been created with voice recognition software.� Occasional wrong word or��sound alike� substitutions may have occurred due to the inherent limitations of voice recognition software.
Discharge Plan
Departure
Patient Disposition: Home (Routine Discharge)
Date of Disposition: 09/16/24
Time of Disposition: 06:57
Patient with high blood pressure during this ER visit?: Yes
Condition: Good
Discharge Problem:
Dizziness
Instructions: Dehydration in adults - ED discharge instructions, Dizziness, BLOOD PRESSURE
Prescriptions:
No Action
simvastatin 10 MG tablet
10 mg PO QPM
triamterene-hydrochlorothiazid 37.5-25 mg Tablet
1 tab PO DAILY
cyanocobalamin (vitamin B-12) 1,000 mcg Tablet
1,000 mcg PO MOWEFR
calcium carbonate-vitamin D3 [Calcium 500 + D] 500 mg-10 mcg (400 unit) Tablet
1 tab PO MOWEFR
magnesium oxide 400 mg magnesium Tablet
400 mg PO SUTUTH
Referrals:
Iraj Bianchi MD [Family Provider, Family Practice]
Activity Restrictions/Additional Instructions:
Thank You for choosing [facility].
It was a pleasure meeting you and taking part in your care. We hope for your continued healing and wellness.
Please read discharge instructions in their entirety. However, they are for general education and may not describe your exact diagnosis at discharge. Information on your ER visit and medical conditions were discussed with you along with appropriate
follow up information...
If indicated, please take your medications as instructed and indicated on discharge paperwork.
Please schedule a follow up appointment as directed. Call to schedule an appointment
Please return to the emergency department with ANY change in, persisting, or worsening of symptoms. If any of your symptoms do not improve, or persist, or become more severe within 6-12 hours, please return to the emergency department for further
care.
Please return to the emergency department if you develop a headache, neck pain/stiffness, fever greater than 100.4F, chest pain, shortness of breath, persistent nausea, vomiting, slurred speech, difficulty walking, numbness/tingling, weakness, signs
of infection or any other symptoms that are worrisome to you.
If you have any questions or concerns please do not hesitate to call the Hospital at or E-mail me directly at [email or web address]
Interventions
Interventions:
*Risk Screen - Suicide Last Done: 09/15/24 23:59
*Neglect/Abuse Screening Last Done: 09/15/24 23:59
ED- Pulmonary Assessment Last Done: 09/16/24 01:39
ED- Neurological Assessment Last Done: 09/16/24 01:39
ED- Cardiac Assessment Last Done: 09/16/24 01:39
ED Swallowing Screen Last Done: 09/16/24 01:39
Discharge Date and Time
Discharge Date/Time: 09/16/24 07:01
Print Language: DIVEHI
[2024-09-16] MEDS: NSS 1000 IV (05:33)
[2024-09-17 14:14] LABS: Lyme Antibody Screen, EIA Negative (Negative)
== END 2024-09-16 07:01 | disposition home or self-care (01) ==
LOC: EMR 23:57
PROVIDERS: Emergency Medicine; EMERGENCY PHYSICIAN Student in an Organized Health Care Education/Training Program; FAMILY PHYSICIAN Family Medicine
DX: R42 Dizziness and giddiness (principal); I70.8 Atherosclerosis of other arteries
CPT/HCPCS: 99284; 70496; 70498; 80053; 84484; 85025; 86618; 93005; Q9967

== ENCOUNTER → 2024-11-16 12:22 | Outpatient (REF) | payer MEDICARE, OTHER, SELFPAY | LOC: RAD 12:22 | PROVIDERS: ATTENDING PHYSICIAN Nurse Practitioner Family; FAMILY PHYSICIAN Family Medicine | DX: K59.09 Other constipation (principal) | CPT/HCPCS: 74019 ==

== ENCOUNTER → 2024-11-24 11:21 | Outpatient (REF) | payer MEDICARE, OTHER, SELFPAY | LOC: WDC 11:21 | PROVIDERS: ATTENDING PHYSICIAN Nurse Practitioner Adult Health; FAMILY PHYSICIAN Family Medicine | DX: M85.89 Other specified disorders of bone density and structure, multiple sites (principal); Z12.31 Encounter for screening mammogram for malignant neoplasm of breast | CPT/HCPCS: 77063; 77067; 77080 ==